=== PATIENT | female | born 1945 | race Two or more races ===

== ENCOUNTER 2017-11-07 14:00 | Outpatient (RCR) | payer OTHER | END 2017-11-20 | disposition home or self-care (01) | LOC: PTY 14:00 | DX: G56.11 Other lesions of median nerve, right upper limb (principal); G56.01 Carpal tunnel syndrome, right upper limb ==

== ENCOUNTER 2017-11-22 08:50 | Outpatient (RCR) | payer OTHER | END 2017-12-21 | disposition home or self-care (01) | LOC: PTY 08:50 | DX: G56.11 Other lesions of median nerve, right upper limb (principal); G56.01 Carpal tunnel syndrome, right upper limb; M54.12 Radiculopathy, cervical region ==